=== PATIENT | male | born 1955 | race Caucasian/White ===

== ENCOUNTER 2018-04-12 11:42 | Observation (INO) ==
[2018-04-12] MEDS ORDERED: Metoprolol Tartrate 25 MG Tablet PO SCH (12:37)
[2018-04-12] MEDS ORDERED: Chlorhexidine Gluconate 2% 1 Pack (2 Cloths) TOPICAL SCH (12:37)
[2018-04-12 12:54] LABS: INR 1.1 Ratio; Prothrombin Time 10.8 sec (9.8-11.6)
[2018-04-12] MEDS ORDERED: Sodium Chlor 0.9% Inj 500 ML IV.SIG SCH (13:00)
[2018-04-12] MEDS ORDERED: ceFAZolin 2 GM Premix Inj 2 GM/50 ML PIGGYBACK IV.SIG SCH (13:00)
[2018-04-12] MEDS ORDERED: Sugammadex Inj 200 MG/2 ML Vial IV.PUSH ONE (13:45)
[2018-04-12] MEDS ORDERED: Phenylephrine/NS 1000 MCG/10ML Syringe IV.PUSH ONE (14:06)
[2018-04-12] MEDS ORDERED: Sodium Chlor 0.9% Inj 500 ML IV.CONT ONE (14:06)
[2018-04-12] MEDS ORDERED: Lidocaine PF 1% Inj 5 ML Syringe OTHER ONE (14:06)
[2018-04-12] MEDS ORDERED: Normosol-R pH 7.4 Inj 2,000 ML IV.CONT ONE (14:06)
[2018-04-12] MEDS ORDERED: Sodium Chlor 0.9% Inj 250 ML IV.CONT ONE (14:06)
[2018-04-12 17:47] LABS: Baso # (Auto) 0.1 th/mm3 (0.0-0.2); Baso % (Auto) 0.4 % (0.0-2.0); Eos # (Auto) 0.1 th/mm3 (0.0-0.4); Eos % (Auto) 0.6 % (0.0-4.0); Hematocrit 42.3 % (39.0-51.0); Hemoglobin 13.6 gm/dL (13.0-17.0); Lymph # (Auto) 2.7 th/mm3 (1.0-4.8); Lymph % (Auto) 17.7 % (9.0-44.0); Mean Corpuscular HGB Conc 32.3 % (32.0-36.0); Mean Corpuscular Hemoglobin 31.5 pg (27.0-34.0); Mean Corpuscular Volume 97.7 fL (80.0-100.0); Mean Platelet Volume 7.6 fL (7.0-11.0); Mono # (Auto) 0.4 th/mm3 (0.0-0.9); Mono % (Auto) 2.7 % (0.0-8.0); Neut # (Auto) 11.9 th/mm3 (1.8-7.7); Neut % (Auto) 78.6 % (16.0-70.0); Platelet Count 298 th/mm3 (150-450); Red Blood Count 4.33 mil/mm3 (4.50-5.90); Red Cell Distribution Width 18.6 % (11.6-17.2); White Blood Count 15.1 th/mm3 (4.0-11.0)
[2018-04-12 17:49] LABS: ABG Base Excess -3.9 mmol/L (-2-2); ABG PCO2 59 mmHg (38-42); ABG PO2 89 mmHG (61-120)
[2018-04-12] MEDS ORDERED: *morphine SULFATE 10 MG/ML PERIprocedure ONLY ONE ×2 (18:57→19:09)
[2018-04-12] MEDS ORDERED: fentaNYL Citrate Inj 100 MCG/2 ML Ampul ONE (18:57)
[2018-04-12] MEDS ORDERED: Sodium Chlor 0.9% Inj 1,000 ML IV.SIG SCH (19:00)
[2018-04-12] MEDS: Sod Chloride 0.9% Inj 1,000 ML IV.SIG SCH (19:10)
[2018-04-12 19:21] LABS: Baso % (Auto) 0.3 % (0.0-2.0); Eos % (Auto) 0.2 % (0.0-4.0); Hematocrit 42.3 % (39.0-51.0); Hemoglobin 13.9 gm/dL (13.0-17.0); Lymph # (Auto) 1.1 th/mm3 (1.0-4.8); Lymph % (Auto) 8.6 % (9.0-44.0); Mean Corpuscular HGB Conc 32.8 % (32.0-36.0); Mean Corpuscular Hemoglobin 31.9 pg (27.0-34.0); Mean Corpuscular Volume 97.1 fL (80.0-100.0); Mean Platelet Volume 7.6 fL (7.0-11.0); Mono # (Auto) 0.3 th/mm3 (0.0-0.9); Mono % (Auto) 2.4 % (0.0-8.0); Neut # (Auto) 11.1 th/mm3 (1.8-7.7); Neut % (Auto) 88.5 % (16.0-70.0); Platelet Count 250 th/mm3 (150-450); Red Blood Count 4.36 mil/mm3 (4.50-5.90); Red Cell Distribution Width 18.3 % (11.6-17.2); White Blood Count 12.5 th/mm3 (4.0-11.0)
--- NOTE | 2018-04-12 19:28 | MP ---
cc: Henrry Roche MD DATE OF OPERATION: 04/12/2018 PREOPERATIVE DIAGNOSIS: Right solid 3 cm renal mass. POSTOPERATIVE DIAGNOSIS: Right solid 3 cm renal mass. PROCEDURE: Robotic-assisted laparoscopic right partial nephrectomy with intraoperative ultrasound. SURGEON: Henrry Roche MD ANESTHESIA: General. COMPLICATIONS: None. ANTIBIOTICS: Ancef 2 grams IV. DRAINS: 1. Mallory catheter to gravity drainage. 2. DIMITRIS drain to bulb suction. ESTIMATED BLOOD LOSS: 600 mL. FLUIDS: 303 liters crystalloids. SPECIMENS: Right renal mass for permanent. DISPOSITION: Stable to recovery. INDICATIONS: The patient is a 63-year-old male who was found to have incidental right renal mass. The patient underwent percutaneous biopsy, which confirmed the presence of renal cell carcinoma. Treatment options were discussed. He elected to proceed with robotic partial nephrectomy. He had previous surgeries done in the past including a sigmoid colon resection. After risks, benefits, and alternatives were explained to the patient including the risk of positive margin, urine leak, possible loss of kidney and anesthetic risks, he elected to proceed. Informed consent was obtained. DETAILS OF PROCEDURE: The patient was properly identified, brought back to the operating room and laid supine on the operating table. Appropriate timeout was performed under the direction of Anesthesiology. The patient was intubated and induced under general anesthetic. Preoperative antibiotics in the form of Ancef 2 grams IV were given within one hour of the start of procedure. A Mallory catheter was then placed under sterile technique. He was placed in left lateral decubitus position with the right side up. All pressure points were padded. He was then prepped and draped in normal sterile surgical fashion. A stab incision was made superior and lateral to the umbilicus with a #11 blade. A Veress needle was then used to gain access to the abdominal cavity. Pneumoperitoneum was then achieved. The incision was extended to approximately 2 cm and, under direct visualization, I passed a 12 mm long camera port through into the abdominal cavity. There was no associated intra-abdominal trauma or injury including bleeding. There were minimal adhesions seen, surprisingly. At this time, 5 other ports were then placed, under direct visualization, including two 8 mm robotic ports were triangulated off the camera port, a 5 mm liver retraction port just below the xiphoid process of the midline, and then, two 12 mm executive chef assistant ports superior and inferior to the umbilicus in the midline. These were all placed under direct visualization. Of note, the patient had an extremely large and floppy liver. There were some small adhesions in the right lower quadrant, which were taken down with cold cut scissors to begin the case. At this point, I then reflected the colon medially to expose the retroperitoneum. I was then able to kocherize the duodenum to expose the inferior vena cava. I dissected inferiorly around the kidney until I exposed the mid portion of the right ureter. I developed a plane between the ureter and the psoas muscle. Prior to dissecting posterior of the kidney up towards the renal hilum, I attempted to retract the liver, but several small gashes were made in the liver, causing some bleeding. The patient had extremely floppy liver and I was unable to retract it sufficiently cephalad with any type of retractor, including a eh liver retractor. Therefore, it was necessary to kind of work around the presence of the liver. I then carefully marched up the psoas muscle, following the ureter, until I exposed the renal hilum. Both the artery and vein were easily dissected out. There was a single artery and vein. At this point, I was able to easily see the exophytic tumor. There was anterior and lateral in the kidney as it was protruding through the perinephric fat. I then defatted the kidney around this area to expose the tumor, which appeared to have a golf ball on top of the kidney. Intraoperative ultrasound was then used to confirm the borders of this tumor, which was approximately 3.3 cm in size and does not appear to be very deep. At this point, 12.5 grams of mannitol were given by Anesthesia. Ten minutes later, I then clamped the single renal artery with a long curved bulldog. I then cut the tumor out in its entirety. Grossly, the tumor appeared to be completely resected. At this point, we then closed the renal defect with a running 2-0 Stratafix. It was then secured with a Hem-o-Jad and a Lapra-Ty. The kidney was then unclamped; clamp time was a total of 28 minutes. There was minimal bleeding seen. I then used 2 separate 0 Vicryl to further reinforce the repair of the right kidney defect. Evicel was then used for hemostatic purposes. The pressure was then brought down to 7 mm of pressure in the abdominal cavity. There was no evidence of any bleeding. The liver appeared to be intact, the blood clot was then removed. Evicel was then used on the liver as well at the places that were the small liver lacerations done from earlier. 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 At this point, all ports were removed under direct visualization. A 10 round DIMITRIS drain was placed through the right lower quadrant port and was secured with 3-0 nylon. All incisions were closed with 3-0 Vicryl. Sponge, needle and instrument counts were correct at the end of the case. The patient was then extubated and sent to recovery in stable condition. He will be transferred to the floor for routine postoperative care. MD COLIN Soto/garcia , 06:32 PM , 06:43 PM
[2018-04-12] MEDS ORDERED: *morphine SULFATE 4 MG/ML PERIprocedure ONLY ONE (19:36)
[2018-04-12] MEDS: Pantoprazole Inj 40 MG Vial IV.PUSH SCH (19:47)
[2018-04-12 19:51] LABS: Calcium 8.1 mg/dL (8.5-10.1); Carbon Dioxide 23.3 meq/L (21.0-32.0); Potassium 3.9 meq/L (3.5-5.1)
[2018-04-12] MEDS ORDERED: *HYDROmorphone PF Inj 1 MG/ML Ampul PERIprocedural Use ONLY ONE (20:03)
[2018-04-12] MEDS: Docusate Sodium 100 MG Capsule PO SCH (20:47)
[2018-04-13] MEDS: ceFAZolin 1 GM Premix Inj 1 GM/50 ML FROZ.PIGGY IV.SIG SCH ×3 (00:40→14:31)
[2018-04-13] MEDS: Sod Chloride 0.9% Inj 1,000 ML IV.SIG SCH ×3 (03:23→19:54)
[2018-04-13] MEDS: Morphine Inj 4 MG/ML Vial IV.PUSH PRN ×3 (06:21→21:29)
[2018-04-13 07:43] LABS: Hematocrit 38.9 % (39.0-51.0); Hemoglobin 12.9 gm/dL (13.0-17.0); Mean Corpuscular Hemoglobin 31.9 pg (27.0-34.0); Mean Corpuscular Volume 96.7 fL (80.0-100.0); Mean Platelet Volume 7.7 fL (7.0-11.0); Platelet Count 222 th/mm3 (150-450); Red Blood Count 4.03 mil/mm3 (4.50-5.90); Red Cell Distribution Width 18.2 % (11.6-17.2); White Blood Count 10.9 th/mm3 (4.0-11.0)
[2018-04-13 08:20] LABS: Calcium 8.1 mg/dL (8.5-10.1)
--- NOTE | 2018-04-13 11:05 | XR ---
EXAM DATE: 04/13/2018 10:18 AM EST AGE/SEX: 63 years / Male INDICATIONS: Rib fractures, right rib pain post fall 01/03/[address] [facility]. Right thoracotomy a few days later. Post right nephrectomy yesterday. CLINICAL DATA: This is the patient's subsequent encounter. Patient reports that signs and symptoms h ave been present for 2 months and indicates a pain score of 7/10. MEDICAL/SURGICAL HISTORY: Hypertension. Diverticulitis. Smoker Tonsillectomy. Colon resectio n. Nephrectomy, right. Right thoracotomy. COMPARISON: [facility], MR ABDOMEN W/ AND W/O CONTRAST, 01/13/2018. . [facility] 2018-01-03 FINDINGS: Extensive subcutaneous emphysema is present. I don't see a pneumothorax of 100 be difficult to exclud e. Nondisplaced fractures of the right fourth and fifth ribs are noted. Surgical drain is seen on the ri ght. CONCLUSION: Extensive subcutaneous emphysema without definite pneumothorax. CT scan would be helpful. At least 2 rib fractures on the right, nondisplaced Electronically signed by: Laith Bernstein MD 04/13/2018 11:03 AM EST
[2018-04-13] MEDS: Docusate Sodium 100 MG Capsule PO SCH ×2 (11:09→20:10)
[2018-04-13] MEDS: hydroCHLOROthiazide 25 MG Tablet PO SCH (11:09)
--- NOTE | 2018-04-13 13:25 | P.PNURO ---
Subjective Patient symptoms today: Pt is s/p partial right nephrectomy yesterday. Seen at bedside. no f/c/n/v. Pain is managed well and is not too strong now. no hematuria. labs are stable. On liquid diet now. he did not pass any flatus or had BM. Ambulated a little in his room. DIMITRIS drain is in place, drains sanguineous fluid. CXR has right 4th and 5tyh rib fracture, he fell a month ago and we knew about it. Also has findings of emphysema, pt is a smoker Objective Vital Signs: Vital Signs 04/12/18 18:48 04/12/18 19:00 04/12/18 19:15 Temperature 97.3 F L Pulse Rate 113 H 96 H 90 Respiratory Rate 14 16 12 Blood Pressure 101/70 108/66 118/68 Pulse Oximetry 98 98 95 04/12/18 19:30 04/12/18 19:45 04/12/18 20:00 Temperature 97.4 F L Pulse Rate 91 H 86 97 H Respiratory Rate 12 12 15 Blood Pressure 105/61 107/64 118/73 Pulse Oximetry 96 94 L 97 04/12/18 21:05 04/12/18 22:10 04/13/18 00:00 Temperature 97.1 F L 97.4 F L Pulse Rate 92 H 90 Respiratory Rate 18 18 18 Blood Pressure 105/60 129/79 Pulse Oximetry 96 96 04/13/18 04:00 04/13/18 05:07 04/13/18 08:00 Temperature 97.3 F L 97.6 F Pulse Rate 78 75 Respiratory Rate 19 20 19 Blood Pressure 110/74 113/63 Pulse Oximetry 95 96 04/13/18 12:00 Temperature 98.0 F Pulse Rate 91 H Respiratory Rate 16 Blood Pressure 104/64 Pulse Oximetry 95 Intake & Output 04/12/18 04/13/18 04/13/18 18:59 06:59 18:59 Intake Total 3100 / 3100 1550 / 1550 1050 / 1050 Output Total 1200 / 1200 585 / 585 Balance 1900 / 1900 965 / 965 1050 / 1050 Weight 91.8 kg 92.2 kg Intake: IV 100 / 100 1050 / 1050 1050 / 1050 NS Inj 1,000 ML @ 125 mls/hr IV 1000 / 1000 1000 / 1000 .SIG .Q8H QIANA Rx#:[id number] Ancef 1 GM Premix Inj 1 gm In 50 / 50 50 / 50 50 ml @ 100 mls/hr IV.SIG Q8H QIANA Rx#:[id number] Ancef 2 GM Premix Inj 2 gm In 50 / 50 50 ml @ 100 mls/hr IV.SIG MELT SUPERVISOR QIANA Rx#:[id number] Oral 500 / 500 Anesthesia Amount 3000 / 3000 Output: Urine 400 / 400 Estimated Blood Loss 600 / 600 Urine Amount (Catheter) 600 / 600 100 / 100 Indwelling Urethral Catheter 600 / 600 100 / 100 Wound Drainage 85 / 85 Right Lower Abdomen 85 / 85 Other: Weight On Admission 91.8 kg Result Diagrams: 04/13/18 07:24 04/13/18 07:24 Other Results: NAD RRR Clear lungs munoz is in place Some leakage around DIMITRIS drain noted Abd soft slightly distended and tender as expected post/op Incision is c/d/i Imaging: Impressions Ribs X-Ray 04/13/18 00:00 CONCLUSION: Extensive subcutaneous emphysema without definite pneumothorax. CT scan would be helpful. At least 2 rib fractures on the right, nondisplaced Medications and IVs: Active Medications Generic Name Dose Route Start Last Admin Trade Name Freq PRN Reason Stop Dose Admin Chlorhexidine Gluconate 3 pack 04/12/18 12:37 04/12/18 12:05 Chlorhexidine 2% Cloth TOPICAL 04/15/18 12:36 3 pack MELT SUPERVISOR QIANA Administration Docusate Sodium 100 mg 04/12/18 21:00 04/13/18 11:09 Colace PO 100 mg BID QIANA Administration Hydrochlorothiazide 25 mg 04/13/18 09:00 04/13/18 11:09 Hydrodiuril PO 25 mg DAILY QIANA Administration Lactated Ringer's 1,000 mls @ 30 mls/hr 04/12/18 12:45 04/13/18 11:55 Lr 1000 Ml Inj IV.SIG 04/15/18 12:44 Not Given .Q24H QIANA Sodium Chloride 500 mls @ 30 mls/hr 04/12/18 13:00 Ns Inj IV.SIG 04/15/18 12:59 .Q10H QIANA Cefazolin Sodium/Dextrose 2 gm in 50 mls @ 100 mls/hr 04/12/18 13:00 15:30 Ancef 2 Gm Premix Inj IV.SIG 04/15/18 12:59 Infused MELT SUPERVISOR QIANA Infusion Cefazolin Sodium/Dextrose 1 gm in 50 mls @ 100 mls/hr 04/12/18 23:00 07:44 Ancef 1 Gm Premix Inj IV.SIG 04/13/18 15:29 Infused Q8H QIANA Infusion Sodium Chloride 1,000 mls @ 125 mls/hr 04/12/18 19:30 04/13/18 11:54 Ns Inj IV.SIG 125 mls/hr .Q8H QIANA Administration Losartan Potassium 100 mg 04/13/18 09:00 04/13/18 11:10 Cozaar PO 100 mg DAILY QIANA Administration Metoprolol Tartrate 25 mg 04/12/18 12:37 04/12/18 12:49 Lopressor PO 04/15/18 12:36 Not Given MELT SUPERVISOR [facility] Miscellaneous Information 1 each 04/12/18 18:50 Misc Nursing Information OTHER 04/13/18 18:49 UNSCH PRN SEE LABEL COMMENTS Morphine Sulfate 4 mg 04/12/18 18:10 04/13/18 06:21 Morphine Inj IV.PUSH 4 mg Q4H PRN Administration BREAKTHROUGH PAIN Ondansetron HCl 4 mg 04/12/18 18:11 04/13/18 03:31 Zofran Inj IV.PUSH 4 mg Q6H PRN Administration NAUSEA OR VOMITING Oxycodone/Acetaminophen 2 tab 04/12/18 18:10 04/13/18 11:13 Percocet 5/325 Mg PO 2 tab Q4H PRN Administration PAIN SCALE 6 TO 10 Oxycodone/Acetaminophen 1 tab 04/12/18 18:13 Percocet 5/325 Mg PO Q4H PRN PAIN SCALE 3 TO 5 Pantoprazole Sodium 40 mg 04/12/18 19:00 04/12/18 19:47 Protonix Inj IV.PUSH 40 mg Q24H QIANA Administration Povidone Iodine 1 applicatio 04/12/18 12:37 04/12/18 12:25 Betadine 5% Antisepsis Kit EACH NARE 04/15/18 12:36 1 applicatio MELT SUPERVISOR QIANA Administration Assessment and Plan - Plan 63y.o m POD #1 s/p right partial nephrectomy - Continue current management - Labs at AM - DIMITRIS fluid Cr sent if ok we will remove DIMITRIS drain - Use IS when in bed - OOB to ambulate - pain control prn - Monitor I&O - DVT prophylaxis. - COPD/emphysema will need to be addressed by PCP after D/c. he is asymptomatic now - Possibly remove munoz tomorrow Discussed Condition With: Dr Kaley RAMOS attending and pt's RN
[2018-04-13] MEDS: Pantoprazole Inj 40 MG Vial IV.PUSH SCH ×2 (17:31→18:04)
[2018-04-14] MEDS: Morphine Inj 4 MG/ML Vial IV.PUSH PRN ×4 (01:32→14:13)
[2018-04-14] MEDS: Sod Chloride 0.9% Inj 1,000 ML IV.SIG SCH ×3 (03:54→20:51)
[2018-04-14 08:39] LABS: Hematocrit 37.3 % (39.0-51.0); Hemoglobin 12.6 gm/dL (13.0-17.0); Mean Corpuscular HGB Conc 33.7 % (32.0-36.0); Mean Corpuscular Hemoglobin 32.3 pg (27.0-34.0); Mean Corpuscular Volume 95.8 fL (80.0-100.0); Mean Platelet Volume 7.8 fL (7.0-11.0); Platelet Count 202 th/mm3 (150-450); Red Blood Count 3.89 mil/mm3 (4.50-5.90); Red Cell Distribution Width 18.4 % (11.6-17.2); White Blood Count 8.7 th/mm3 (4.0-11.0)
[2018-04-14 08:55] LABS: Calcium 8.5 mg/dL (8.5-10.1); Carbon Dioxide 27.5 meq/L (21.0-32.0)
[2018-04-14] MEDS: Docusate Sodium 100 MG Capsule PO SCH ×2 (10:15→20:51)
[2018-04-14] MEDS: hydroCHLOROthiazide 25 MG Tablet PO SCH (10:16)
--- NOTE | 2018-04-14 14:02 | P.PNURO ---
Subjective Patient symptoms today: Pt was seen at bedside. no fever, no N/V. Toleates regular diet well and Ambulates ok. + flatus, no BM yet. Voided without difficulties after munoz removal. Labs are stable. DIMITRIS out put small. Pain is controlled with meds Objective Vital Signs: Vital Signs 04/13/18 16:00 04/13/18 19:13 04/13/18 20:00 Temperature 97.8 F 98.2 F Pulse Rate 93 H 87 Respiratory Rate 17 18 18 Blood Pressure 133/75 111/66 Pulse Oximetry 95 93 L 04/13/18 21:31 04/13/18 23:21 04/14/18 00:00 Temperature 97.7 F Pulse Rate 88 Respiratory Rate 18 18 18 Blood Pressure 116/62 Pulse Oximetry 94 L 04/14/18 01:34 04/14/18 03:25 04/14/18 05:40 Temperature Pulse Rate Respiratory Rate 18 18 18 Blood Pressure Pulse Oximetry 04/14/18 07:14 04/14/18 08:00 04/14/18 11:36 Temperature 98.2 F 97.9 F Pulse Rate 102 H 104 H Respiratory Rate 17 18 16 Blood Pressure 140/73 124/71 Pulse Oximetry 91 L 90 L 04/14/18 13:50 Temperature Pulse Rate Respiratory Rate 17 Blood Pressure Pulse Oximetry Intake & Output 04/13/18 04/14/18 04/14/18 18:59 06:59 18:59 Intake Total 1100 / 1100 3700 / 3700 1000 / 1000 Output Total 60 / 60 1515 / 1515 Balance 1040 / 1040 2185 / 2185 1000 / 1000 Weight 92.2 kg Intake: IV 1100 / 1100 3000 / 3000 1000 / 1000 LR 1000 mL Inj 1,000 ML @ 30 1000 / 1000 mls/hr IV.SIG .Q24H QIANA Rx#: [id number] NS Inj 1,000 ML @ 125 mls/hr IV 1000 / 1000 2000 / 2000 1000 / 1000 .SIG .Q8H QIANA Rx#:[id number] Ancef 1 GM Premix Inj 1 gm In 100 / 100 50 ml @ 100 mls/hr IV.SIG Q8H QIANA Rx#:[id number] Oral 700 / 700 Output: Urine 500 / 500 Urine Amount (Catheter) 1000 / 1000 Indwelling Urethral Catheter 1000 / 1000 Wound Drainage 60 / 60 15 / 15 Right Lower Abdomen 60 / 60 15 / 15 Other: # Voids 2 Result Diagrams: 04/14/18 08:10 04/14/18 08:10 Other Results: NAD RRR Clear lungs Abd slightly distended, tender at the incisions site. Incisions are healing well and C/D/I Medications and IVs: Active Medications Generic Name Dose Route Start Last Admin Trade Name Freq PRN Reason Stop Dose Admin Chlorhexidine Gluconate 3 pack 04/12/18 12:37 04/12/18 12:05 Chlorhexidine 2% Cloth TOPICAL 04/15/18 12:36 3 pack COMMUNITY [employer] WORKER QIANA Administration Docusate Sodium 100 mg 04/12/18 21:00 04/14/18 10:15 Colace PO 100 mg BID QIANA Administration Hydrochlorothiazide 25 mg 04/13/18 09:00 04/14/18 10:16 Hydrodiuril PO 25 mg DAILY QIANA Administration Lactated Ringer's 1,000 mls @ 30 mls/hr 04/12/18 12:45 04/14/18 12:03 Lr 1000 Ml Inj IV.SIG 04/15/18 12:44 Not Given .Q24H QIANA Sodium Chloride 500 mls @ 30 mls/hr 04/12/18 13:00 Ns Inj IV.SIG 04/15/18 12:59 .Q10H QIANA Cefazolin Sodium/Dextrose 2 gm in 50 mls @ 100 mls/hr 04/12/18 13:00 15:30 Ancef 2 Gm Premix Inj IV.SIG 04/15/18 12:59 Infused COMM[employer]ITY [employer] WORKER QIANA Infusion Sodium Chloride 1,000 mls @ 125 mls/hr 04/12/18 19:30 04/14/18 12:27 Ns Inj IV.SIG Not Given .Q8H QIANA Losartan Potassium 100 mg 04/13/18 09:00 04/14/18 10:15 Cozaar PO 100 mg DAILY QIANA Administration Metoprolol Tartrate 25 mg 04/12/18 12:37 04/12/18 12:49 Lopressor PO 04/15/18 12:36 Not Given [employer] WORK[employer] QIANA Morphine Sulfate 4 mg 04/12/18 18:10 04/14/18 09:51 Morphine Inj IV.PUSH 4 mg Q4H PRN Administration BREAKTHROUGH PAIN Ondansetron HCl 4 mg 04/12/18 18:11 04/13/18 03:31 Zofran Inj IV.PUSH 4 mg Q6H PRN Administration NAUSEA OR VOMITING Oxycodone/Acetaminophen 2 tab 04/12/18 18:10 04/14/18 06:44 Percocet 5/325 Mg PO 2 tab Q4H PRN Administration PAIN SCALE 6 TO 10 Oxycodone/Acetaminophen 1 tab 04/12/18 18:13 04/14/18 12:52 Percocet 5/325 Mg PO 1 tab Q4H PRN Administration PAIN SCALE 3 TO 5 Pantoprazole Sodium 40 mg 04/12/18 19:00 04/13/18 18:04 Protonix Inj IV.PUSH Not Given Q24H [facility] Povidone Iodine 1 applicatio 04/12/18 12:37 04/12/18 12:25 Betadine 5% Antisepsis Kit EACH NARE 04/15/18 12:36 1 applicatio COMMUNITY ACTION WORKER [facility] Administration Assessment and Plan - Plan 63y.o m POD #2 s/p right partial nephrectomy - Continue current management - Continue reg diet - Ambulate, if in bed use IS - DIMITRIS fluid Cr is ok, we will remove DIMITRIS drain - pain control prn - Monitor I&O - DVT prophylaxis. - Munoz removed this AM - Plan to d/c tomorrow Discussed Condition With: RN and Dr Roche
[2018-04-14] MEDS: Pantoprazole Inj 40 MG Vial IV.PUSH SCH (18:01)
[2018-04-15] MEDS: Sod Chloride 0.9% Inj 1,000 ML IV.SIG SCH ×2 (04:09→11:56)
[2018-04-15 06:02] LABS: Hemoglobin 11.9 gm/dL (13.0-17.0); Mean Corpuscular Hemoglobin 32.1 pg (27.0-34.0); Mean Corpuscular Volume 94.3 fL (80.0-100.0); Mean Platelet Volume 7.8 fL (7.0-11.0); Platelet Count 202 th/mm3 (150-450); Red Blood Count 3.72 mil/mm3 (4.50-5.90); Red Cell Distribution Width 18.3 % (11.6-17.2); White Blood Count 8.2 th/mm3 (4.0-11.0)
[2018-04-15 06:31] LABS: Calcium 8.6 mg/dL (8.5-10.1); Carbon Dioxide 26.9 meq/L (21.0-32.0); Potassium 3.1 meq/L (3.5-5.1)
[2018-04-15 07:31] VITALS: RESP 16
[2018-04-15] MEDS: Docusate Sodium 100 MG Capsule PO SCH (08:44)
[2018-04-15] MEDS: hydroCHLOROthiazide 25 MG Tablet PO SCH (08:48)
[2018-04-15 11:51] VITALS: BP 133/83; PULSE 95; TEMP 98.5; O2SAT 95
--- NOTE | 2018-04-15 14:13 | P.PNURO ---
Subjective Patient symptoms today: Pt was seen at bedside. Doing well. Pain is mild to mod. no f/c/n/v. Tolerates diet well. Ambulating without issues. + BM today. Pathology discussed. DIMITRIS was removed. No issues with Voiding Objective Vital Signs: Vital Signs 04/14/18 14:40 04/14/18 16:00 04/14/18 18:21 Temperature 98.4 F Pulse Rate 97 H Respiratory Rate 16 19 17 Blood Pressure 121/77 Pulse Oximetry 92 L 04/14/18 20:00 04/14/18 21:23 04/15/18 00:00 Temperature 97.7 F 98.8 F Pulse Rate 109 H 95 H Respiratory Rate 19 18 19 Blood Pressure 136/79 128/75 Pulse Oximetry 95 95 04/15/18 02:44 04/15/18 07:29 04/15/18 11:50 Temperature 98.3 F 98.5 F Pulse Rate 86 95 H Respiratory Rate 17 16 16 Blood Pressure 150/83 H 133/83 Pulse Oximetry 91 L 95 Intake & Output 04/14/18 04/15/18 04/15/18 18:59 06:59 18:59 Intake Total 1750 / 1750 240 / 240 Output Total 0 / 0 Balance 1750 / 1750 240 / 240 Weight 77.4 kg Intake: IV 1000 / 1000 NS Inj 1,000 ML @ 125 mls/hr IV 1000 / 1000 .SIG .Q8H QIANA Rx#:[id number] Oral 750 / 750 240 / 240 Output: Wound Drainage 0 / 0 Right Lower Abdomen 0 / 0 Other: # Voids 3 1 Date of Last Bowel Movement 04/14/18 # Bowel Movements 0 Result Diagrams: 04/15/18 05:30 04/15/18 05:30 Other Results: NAD RRR C,ear lungs Abd semisoft. slightly tender Incisions are clean and intact Medications and IVs: Active Medications Generic Name Dose Route Start Last Admin Trade Name Freq PRN Reason Stop Dose Admin Docusate Sodium 100 mg 04/12/18 21:00 04/15/18 08:44 Colace PO Not Given BID QIANA Hydrochlorothiazide 25 mg 04/13/18 09:00 04/15/18 08:48 Hydrodiuril PO 25 mg DAILY QIANA Administration Sodium Chloride 1,000 mls @ 125 mls/hr 04/12/18 19:30 04/15/18 11:56 Ns Inj IV.SIG Not Given .Q8H QIANA Losartan Potassium 100 mg 04/13/18 09:00 04/15/18 08:47 Cozaar PO 100 mg DAILY QIANA Administration Ondansetron HCl 4 mg 04/12/18 18:11 04/13/18 03:31 Zofran Inj IV.PUSH 4 mg Q6H PRN Administration NAUSEA OR VOMITING Oxycodone/Acetaminophen 2 tab 04/12/18 18:10 04/15/18 11:29 Percocet 5/325 Mg PO 2 tab Q4H PRN Administration PAIN SCALE 6 TO 10 Oxycodone/Acetaminophen 1 tab 04/12/18 18:13 04/14/18 12:52 Percocet 5/325 Mg PO 1 tab Q4H PRN Administration PAIN SCALE 3 TO 5 Pantoprazole Sodium 40 mg 04/12/18 19:00 04/14/18 18:01 Protonix Inj IV.PUSH 40 mg Q24H QIANA Administration Assessment and Plan - Plan 63y.o m POD #3 s/p right partial nephrectomy Meets criteria for d/c D/c was initiated Pt to go home and f/u with Dr Roche as outpt next week. Discussed Condition With: Dr Kaley Craig attending and Pt's RN
== END 2018-04-15 16:51 | disposition home or self-care (01) ==
LOC: HSDC 11:42 → INTOOBSV 18:17 → HSDI 18:17 → N07 20:21
PROVIDERS: ADMIT Urology; ATTEND Urology